=== PATIENT | female | born 2000 | race African-American/Black ===

== ENCOUNTER 2024-03-12 16:37 | Emergency (ER) | payer OTHER, MEDICAID, SELFPAY ==
--- NOTE | ~2024-03-12 | XR_ITS ---
XR foot LT min 3V DATE: 03/12/2024 17:07 INDICATION: Inversion injury. Pain at the base of the fifth metatarsal bone TECHNIQUE: 4 views COMPARISON: None FINDINGS: There is a transverse nondisplaced linear probable intra-articular fracture of the base of the fifth metatarsal bone. No other fracture, dislocation, periosteal reaction or bone destruction. IMPRESSION: Linear nondisplaced probable intra-articular fracture of the base of the fifth metatarsal bone Reviewed, dictated and finalized at location A. IMPRESSION: Linear nondisplaced probable intra-articular fracture of the base o f the fifth metatarsal bone
[2024-03-12 16:46] VITALS: BP 123/69; PULSE 96; RESP 18; TEMP 37; O2SAT 100
--- NOTE | 2024-03-12 16:56 | ED.GENADULT ---
HPI - General Adult General Chief complaint: Extremity Injury, Lower Stated complaint: Fall Injury/Left Foot Source: patient, RN notes reviewed and old records reviewed Mode of arrival: ambulatory Limitations: no limitations History of Present Illness HPI narrative: 23-year-old female presents to [facility] with complaint of left foot pain this started Sunday night after patient fell down some stairs. Patient has tried a strep and resting foot with no relief. Patient denies any other injury. Related Data Home Medications Medication Instructions Recorded Confirmed drospirenone 3 mg-ethinyl tablet 03/12/24 estradiol 0.02 mg tablet (Loryna (28)) Allergies Allergy/AdvReac Type Severity Reaction Status Date / Time No Known Allergies Allergy Unverified 03/12/24 16:42 Review of Systems Constitutional: Constitutional: Reports no additional constitutional complaints, Denies body ache(s), Denies chills, Denies fatigue, Denies fever(s) and Denies headache(s) Eyes: Eyes: Reports no additional eye complaints and Denies blurry vision ENT: Reports system reviewed and no additional complaints, except as documented, Denies vertigo, Denies dizziness, Denies ear discharge, Denies otalgia, Denies facial pain, Denies headache(s), Denies nasal congestion, Denies nasal discharge, Denies sinus pain, Denies sinus pressure and Denies sore throat Cardiovascular: Cardiovascular: Reports no additional cardiovascular complaints, Denies chest pain, Denies chest pain at rest, Denies rapid heart rate and Denies dyspnea Respiratory: Respiratory: Reports no additional respiratory complaints, Denies chest congestion, Denies cough, Denies pain on inspiration, Denies pain with cough and Denies dyspnea Gastrointestinal: Gastrointestinal: Denies abdominal pain, Denies diarrhea, Denies nausea and Denies vomiting Musculoskeletal: Musculoskeletal: Reports as per HPI Comments: right foot pain and swelling Integumentary/Breasts: Skin/Breast: Denies rash Neurologic: Reports system reviewed and no additional complaints, except as documented, Denies vertigo, Denies dizziness and Denies headache(s) Endocrine: Endocrine: Denies fatigue PMFSH Comments At the time of my signature, I reviewed and agree with the nursing past medical, surgical, social, and family history. There is no relevant family history pertinent to the patient complaint. Exam Const: General: cooperative, healthy appearing, no acute distress and well nourished Nutritional Appearance: well nourished Orientation/consciousness: patient oriented x3 Limitations: no limitations HENMT: Head: normal to inspection and normocephalic Ears: external ears normal Face/Nose/Sinus: normal facial exam Face and sinus: normal facial exam Mouth: Yes Normal oral and palatal mucosa present, Yes oropharynx normal and Yes moist mucous membranes Eyes: General: appearance normal, both eyes and all related structures Sclera: sclerae normal Pupils: Equal, round and reactive pupils present Resp: Effort & Inspection: normal respiratory effort, able to speak in complete sentences, no audible wheezes, no cough, no respiratory distress and no retractions Skin: General skin exam: normal color and no rashes or lesions noted Neuro: General: patient oriented x3 Cranial nerves: Yes Equal, round and reactive pupils present Extrem: Right lower extremity: ankle Details: normal to inspection, no edema and normal ROM; no tenderness, no swelling, no edema, no unusual warmth and no abrasions and foot Details: normal capillary refill, tenderness Location: of the lateral foot, toes with normal ROM, edema Location: diffusely and vascular exam Details: dorsalis pedis pulse present, posterior tibial pulse present and normal capillary refill; not cool and no cyanosis; no unusual warmth, no abrasion, no laceration, no ecchymosis, no crepitus, no foreign bodies and no puncture wound Psych: Appearance: grossly normal Menta
== END 2024-03-12 17:46 | disposition home or self-care (01) ==
PROVIDERS: Emergency Provider Registered Nurse
DX: S92.902A Unspecified fracture of left foot, initial encounter for closed fracture (principal); W10.9XXA Fall (on) (from) unspecified stairs and steps, initial encounter
CPT/HCPCS: 73630; 99204; G0463

== ENCOUNTER 2024-03-17 13:50 | Outpatient (CLI) | payer OTHER, MEDICAID, SELFPAY ==
--- NOTE | ~2024-03-17 | XR_ITS ---
EXAMINATION: XR foot LT min 3V DATE: 03/17/2024 14:02 INDICATION: Lateral left foot pain post injury TECHNIQUE: Dorsoplantar, two oblique and lateral views of the left foot were obtained. COMPARISON: None. FINDINGS: Again seen is a subtle lucent nondisplaced fracture at the base of the fifth metatarsal which appears to demonstrate intra-articular extension but without significant fracture gap or incongruity at the articular cortex. Alignment remains essentially anatomic.. No evident periosteal reaction or other pr oductive changes of healing yet apparent. No other fractures identified. Joint spaces are normal. Dec reased in the prior soft tissue swelling over the dorsum of the foot. IMPRESSION: 1. Unchanged likely intra-articular fracture at the base of the left fifth metatarsal which remains i n essentially anatomic alignment with no evident productive changes of healing yet apparent. Reviewed, dictated and finalized at location A. IMPRESSION: 1. Unchanged likely intra-articular fracture at the base of the left fifth meta tarsal which remains in essentially anatomic alignment with no evident producti ve changes of healing yet apparent.
== END 2024-03-17 13:51 | disposition home or self-care (01) ==
PROVIDERS: Visit Provider Orthopaedic Surgery
DX: M79.672 Pain in left foot (principal)
CPT/HCPCS: 73630

== ENCOUNTER 2024-04-14 12:33 | Outpatient (CLI) | payer OTHER, MEDICAID, SELFPAY ==
--- NOTE | ~2024-04-14 | XR_ITS ---
Left foot Technique: AP, oblique, and lateral views were obtained. Clinical History: Fifth metatarsal fracture COMPARISON: 03/17/2024 Findings: Fracture the base of the fifth metatarsal is essentially unchanged from prior exam. No mark ge in alignment.. Joint spaces are preserved without erosive or degenerative change. Soft tissues are unremarkable. Impression: Essentially stable fracture of the base of the fifth metatarsal. Reviewed, dictated and finalized at location M. Impression: Essentially stable fracture of the base of the fifth metatarsal.
== END 2024-04-14 12:34 | disposition home or self-care (01) ==
LOC: ANHBWCIMG 12:35
PROVIDERS: Visit Provider Orthopaedic Surgery
DX: S92.352A Displaced fracture of fifth metatarsal bone, left foot, initial encounter for closed fracture (principal); X58.XXXA Exposure to other specified factors, initial encounter
CPT/HCPCS: 73630

== ENCOUNTER 2024-04-28 12:59 | Outpatient (CLI) | payer OTHER, MEDICAID, SELFPAY ==
--- NOTE | ~2024-04-28 | XR_ITS ---
EXAM: XR foot LT min 3V DATE: 04/28/2024 13:08 HISTORY: f/u displaced 5th metatarsal fx of lt foot . COMPARISON: 04/14/2024. FINDINGS: Normal mineralization. Redemonstration of the oblique fracture of the fifth metatarsal bas e, alignment unchanged. No definite callus formation. No new acute fracture or dislocation. No lytic or blastic lesion. Joint spaces are maintained. No erosion or periosteal change. Soft tissues within normal limits. IMPRESSION: Stable fracture of the base the fifth metatarsal. No definite interval healing changes ar e detected. Reviewed, dictated and finalized at location K. IMPRESSION: Stable fracture of the base the fifth metatarsal. No definite inter jake healing changes are detected.
== END 2024-04-28 13:00 | disposition home or self-care (01) ==
LOC: ANHBWCIMG 13:01
PROVIDERS: Visit Provider Orthopaedic Surgery
DX: S92.352A Displaced fracture of fifth metatarsal bone, left foot, initial encounter for closed fracture (principal)
CPT/HCPCS: 73630